=== PATIENT | male | born 1945 | race Caucasian/White ===

== ENCOUNTER 2017-06-29 07:01 | Day surgery (SDC) | payer OTHER ==
[2017-03-17 10:24] VITALS: BMI 18.6
[2017-06-29] MEDS ORDERED: Ciprofloxacin 400mg/200ml D5W 400 MG/200 ML BAG IVPB ONE (09:33)
[2017-06-29] MEDS ORDERED: Propofol 10 mg/ml Inj (20 ML) ONE (09:34)
[2017-06-29] MEDS ORDERED: Midazolam 2 MG/2 ML VIAL ONE (09:34)
[2017-06-29 11:41] VITALS: RESP 18
[2017-06-29 12:27] VITALS: BP 131/89; PULSE 67; TEMP 97.8; O2SAT 99
--- NOTE | 2017-06-29 16:39 | OP ---
PROCEDURE DATE: 06/29/2017 PREOPERATIVE DIAGNOSIS: Bladder wall lesion. POSTOPERATIVE DIAGNOSIS: Bladder wall lesion. PROCEDURES: Cystoscopy and biopsy, and fulguration of right bladder wall lesion. SURGEON: Mo Salgado MD DESCRIPTION OF PROCEDURE: The patient confirmed in the holding area that he has not taken any NSAIDs for 10 days. He was brought to the operating room, placed under LMA anesthesia, and premedicated with 400 mg of Cipro IV piggyback. A 22-Kiswahili cystoscope was introduced under direct vision. The anterior and bulbar urethra were normal. The prostate was slightly enlarged, but patent and not totally obstructed. The mucosa of the prostate was normal. Urine was now obtained. It was grossly clear and sent for urinalysis, culture and sensitivity, and urinary cytology. There was diffuse hyperemia of the bladder wall, but this consisted of distinct vascular blood vessels and they did not appear to be in any way pathologic. There were no diffuse areas of erythema that could suggest otherwise, having carcinoma in situ. However, there was a single lesion about 3 mm in size that was raised, it was blood shaped and black blue in . Under direct vision and using a grasping forceps, this lesion was removed in its entirety and sent to Pathology. Then using a Bugbee, we cauterized the area and the surrounding area for a diameter of about 0.6 cm. With the water inflow off and under observation for 2 minutes, there was absolutely no bleeding or erythema and clearly no perforation. We left the bladder partially filled with water, removed the scope. The patient tolerated the procedure well. Mo Salgado MD
== END 2017-06-29 14:06 | disposition home or self-care (01) ==
LOC: C.SDS 07:01
PROVIDERS: ATTEND Urology
DX: N32.9 Bladder disorder, unspecified (principal)
CPT/HCPCS: 52214; 87086; 88104; 88305; J0744